=== PATIENT | male | born 1980 | race Caucasian/White ===

== ENCOUNTER → 2020-08-13 10:21 | Outpatient (CLI) | payer BC, SELFPAY ==
--- NOTE | ~2020-08-13 | US_ITS ---
EXAMINATION: US abdomen complete EXAM DATE: 08/13/2020 10:59 INDICATION: K76.9 liver disease . Elevated liver enzymes. TECHNIQUE: Multiple grayscale and Doppler images of the complete abdomen were obtained (by a technolo gist who performed the scan) and subsequently reviewed. There is no prior study for comparison. FINDINGS: The abdominal aorta is normal in caliber. Visualized portion IVC is patent. The pancreatic head a nd body are normal in appearance. The pancreatic tail is not visualized. The liver has normal echogenicity and contour. There are no focal liver lesions identified. There is no evidence of intrahepatic biliary duct dilation. Portal venous flow was seen in the hepatopedal , normal direction and has normal Doppler waveform. Common bile duct measures 5 mm, which is normal. The gallbladder wall is normal in thickness, with ex pected amount of distention. No sonographic evidence of pericholecystic fluid. There is no cholelit hiases. Technologist performing exam reports patient did not demonstrate sonographic Dougherty's sign. Please note that this sign is less reliable in patients who have received pain medication. Right kidney: There is normal contour and echogenicity. It measures 11.8 x 4.9 x 6.1 centimeters. T here is 1.5 cm cyst in the superior pole. There is no hydronephrosis. Left kidney: There is normal contour and echogenicity. It measures 11.8 x 5.1 x 6.0 centimeters. T here are no focal renal lesions identified. There is no hydronephrosis. The spleen measures 13.9 centimeters, upper limits of normal. IMPRESSION: 1. Spleen upper limits of normal in size. 2. Unremarkable liver. Reviewed, dictated and finalized at location A.
== END ==
PROVIDERS: PCP Emergency Medicine; Visit Provider Emergency Medicine
DX: K76.9 Liver disease, unspecified (principal)
CPT/HCPCS: 76700

== ENCOUNTER → 2021-03-25 09:37 | Outpatient (REF) | payer OTHER, SELFPAY | LOC: ANHLAB 09:37 | PROVIDERS: PCP Emergency Medicine; Visit Provider Nurse Practitioner | DX: D22.4 Melanocytic nevi of scalp and neck (principal) | CPT/HCPCS: 88305 ==

== ENCOUNTER 2021-11-12 09:19 | Outpatient (CLI) | payer BC, SELFPAY ==
[2021-11-15 18:52] LABS: Hepatitis C RNA, Quant PCR <15 IU/mL
== END 2021-11-12 09:20 | disposition home or self-care (01) ==
LOC: ANHLAB 09:23
PROVIDERS: PCP Emergency Medicine; Visit Provider Nurse Practitioner Family
DX: B19.20 Unspecified viral hepatitis C without hepatic coma (principal)
CPT/HCPCS: 36415; 87522

== ENCOUNTER 2021-12-14 06:40 | Emergency (ER) | payer OTHER, SELFPAY ==
[2021-12-14] VITALS (36 sets, daily range): BP systolic 112–138; BP diastolic 63–95; PULSE 79–115; RESP 8–30; TEMP 37.3; O2SAT 94–98
--- NOTE | ~2021-12-14 | XR_ITS ---
EXAMINATION: XR chest 1V portable DATE: 12/14/2021 07:27 INDICATION: Cough, sore throat, fevers and chills TECHNIQUE: frontal view of the chest was obtained. COMPARISON: None FINDINGS: The lungs are clear with no focal airspace opacities, pulmonary edema, pleural effusion or pneumothor ax. The cardiomediastinal silhouette is normal. Visualized bones and soft tissues are unremarkable. IMPRESSION: 1. No acute cardiopulmonary disease. Reviewed, dictated and finalized at location A.
--- NOTE | 2021-12-14 06:52 | ECG_ITS ---
Measurements Intervals [place] Rate: 106 P: 32 KS: 149 QRS: 69 QRSD: 91 T: 55 QT: 292 QTc: 388 Interpretive Statements SINUS TACHYCARDIA INCOMPLETE RIGHT BUNDLE BRANCH BLOCK DELAYED PRECORDIAL R/S TRANSITION BORDERLINE ECG COMPARED TO ECG 05/17/2018 16:53:34 SINUS TACHYCARDIA NOW PRESENT Electronically Signed On 12-14-2021 7:53:22 CDT by Jose Corona D.O.
[2021-12-14] MEDS: ACETAMINOPHEN 500 MG TABLET 1000 MG PO (07:17)
--- NOTE | 2021-12-14 07:23 | PC.NURSE ---
Xray at bedside.
--- NOTE | 2021-12-14 07:28 | ED.GENADULT ---
HPI - General Adult General Chief complaint: Upper Respiratory Infection Stated complaint: HOYOS, chills, muscle aches, sore throat, mild cough Time Seen by Provider: 12/14/21 06:46 History of Present Illness HPI narrative: 41-year-old male presents for evaluation of sore throat, dull headache and coughs x2 days. He took a COVID test at home which was negative but does state that family members have been sick with a flulike, febrile illness. Related Data Home Medications Medication Instructions Recorded Confirmed irbesartan 150 mg tablet 150 mg PO DAILY 10/21/20 10/21/20 lorazepam 0.5 mg tablet 0.5 mg PO BID PRN 10/21/20 10/21/20 Allergies Allergy/AdvReac Type Severity Reaction Status Date / Time No Known Drug Allergies Allergy Unknown Unknown Verified 12/14/21 06:41 Review of Systems Review of Systems: CONSTITUTIONAL: Denies fever, chills, or sweats. EYES: Denies visual changes, redness, or discharge. ENT: Denies rhinorrhea, congestion, sore throat, or otalgia. CARDIOVASCULAR: Denies chest pain, palpitations, or edema. RESPIRATORY: Denies cough or dyspnea. GASTROINTESTINAL: Denies abdominal pain, nausea, vomiting, or diarrhea. GENITOURINARY: Denies dysuria or hematuria. SKIN: Denies rash or itching. MUSCULOSKELETAL: Denies back pain, joint pain, or myalgia. NEUROLOGIC: Denies headache, numbness, or weakness. PSYCHIATRIC: Denies anxiety or depression. [facility] Past Medical History Medical History Crohn's colitis IBS (irritable bowel syndrome) Social History Social History Smoking status: Former smoker Alcohol intake: never Substance use: never Exam Narrative: GENERAL: Well-appearing, well-nourished, and in no acute distress. HEAD: Normocephalic, atraumatic. EYES: PERRLA and EOMI. ENT: Nares clear, no rhinorrhea or epistaxis. Mucous membranes moist. NECK: Supple. CHEST: Clear to auscultation. No respiratory distress. HEART: Regular rate and rhythm. No murmur heard. Normal peripheral pulses. ABDOMEN: Soft, nontender, nondistended, normal active bowel sounds. EXTREMITIES: Normal range of motion. No edema. SKIN: Warm, dry, no rash. NEURO: No focal deficits. Alert and oriented x3. PSYCH: Normal mood and affect. Course Vital Signs Vital signs: Vital Signs Temperature 99.1 F 12/14/21 06:41 Pulse Rate 110 H 12/14/21 06:41 Respiratory Rate 16 12/14/21 06:41 Blood Pressure 137/63 12/14/21 06:41 Pulse Oximetry 98 12/14/21 06:41 Oxygen Delivery Room Air 12/14/21 06:41 Temperature 99.1 F 12/14/21 06:41 Pulse Rate 88 12/14/21 13:02 Respiratory Rate 12 12/14/21 13:02 Blood Pressure 122/74 12/14/21 13:02 Pulse Oximetry 98 12/14/21 13:02 Oxygen Delivery Room Air 12/14/21 07:21 Medical Decision Making MDM Narrative Medical decision making narrative: COVID test and chest x-ray ordered upon arrival. Patient is well-appearing. No increased work of breathing, hypoxia, dyspnea. Labs are reassuring, mild leukocytosis noted patient is afebrile, well-appearing. And agrees to follow-up with primary care provider and return precautions given. Vital Signs Vital Signs: Vital Signs Temperature 99.1 F 12/14/21 06:41 Pulse Rate 110 H 12/14/21 06:41 Respiratory Rate 16 12/14/21 06:41 Blood Pressure 137/63 12/14/21 06:41 Pulse Oximetry 98 12/14/21 06:41 Oxygen Delivery Room Air 12/14/21 06:41 Temperature 99.1 F 12/14/21 06:41 Pulse Rate 88 12/14/21 13:02 Respiratory Rate 12 12/14/21 13:02 Blood Pressure 122/74 12/14/21 13:02 Pulse Oximetry 98 12/14/21 13:02 Oxygen Delivery Room Air 12/14/21 07:21 Lab Data Result diagrams: 12/14/21 07:39 12/14/21 07:39 Labs: Lab Results 12/14/21 12/14/21 12/14/21 Range/Units 07:02 07:39 07:39 WBC 15.5 H (4.5-10.0) K/mm3 RBC 5.05
[2021-12-14 07:44] LABS: Basophils Absolute Auto 0.1 K/mm3 (0.0-0.1); Basophils Percent Auto 0.4 % (0.2-1.2); Eosinophils Absolute Auto 0.1 K/mm3 (0-0.3); Eosinophils Percent Auto 0.4 % (0-4.4); Hematocrit 45.1 % (42.0-52.0); Hemoglobin 15.4 g/dL (14.0-18.0); Immature Granulocyte Absolute 0.07 K/mm3 (0.00-0.031); Immature Granulocyte Percent A 0.5 % (0-0.5); Lymphocytes Percent Auto 9.7 % (18.3-44.2); Mean Corpuscular HGB Conc 34.1 g/dl (32-36); Mean Corpuscular Hemoglobin 30.5 pg (26-34); Mean Corpuscular Volume 89.3 fl (80-100); Mean Platelet Volume 8.9 fl (7.4-10.4); Monocytes Absolute Auto 1.5 K/mm3 (0.1-0.6); Monocytes Percent Auto 9.7 % (2.6-8.5); Neutrophils Absolute Auto 12.3 K/mm3 (1.3-6.7); Neutrophils Percent Auto 79.3 % (45.5-73.1); Platelet Count Result 149 k/mm3 (150-375); Red Blood Count 5.05 M/mm3 (4.6-6.20); Red Cell Distribution Width 12.2 % (11.5-14.5); White Blood Count 15.5 K/mm3 (4.5-10.0)
[2021-12-14 07:54] LABS: Anion Gap 14 mmol/L (8-16); Blood Urea Nitrogen 18 mg/dL (9-20); Calcium 8.9 mg/dL (8.4-10.2); Carbon Dioxide 29 mmol/L (22-30); Chloride 97 mmol/L (98-107); Estimated CRCL calculation 114 ml/min; Estimated Glomerular Filt Rate > 60; Glucose 148 mg/dL (65-110); Potassium 4.2 mmol/L (3.4-5.0); Sodium 140 mmol/L (137-145)
[2021-12-14 08:05] LABS: Troponin I < 0.012 ng/mL (0.000-0.034)
[2021-12-14] MEDS: LACTATED RINGERS 1,000 ML 999 ML IV CONT (08:08)
[2021-12-14 09:13] LABS: SARS-CoV-2 RNA PCR Negative
[2021-12-14 10:15] LABS: Appearance Urine Clear (Clear); Bilirubin Urine Negative (Negative); Blood Urine 2+ (Negative); Color Urine Yellow (Yellow); Glucose Urine UA Negative (Negative); Ketones Urine Negative (Negative); Leukocyte Esterase Ur Negative LEU/UL (Negative); Nitrate Urine Negative (Negative); Protein Urine 2+ mg/dL (Negative); Specific Grav Ur 1.015 (1.001-1.035); Urobilinogen Urine 0.2 mg/dL (<2.0)
[2021-12-14 10:18] LABS: Mucus Urine Rare /lpf; WBC Urine 0-3 /hpf
[2021-12-14 10:25] LABS: Add Urine Microscopic? YES
[2021-12-14] MEDS: KETOROLAC 15 MG/ML VIAL (*BKC) IV PUSH (13:17)
== END 2021-12-14 13:45 | disposition home or self-care (01) ==
PROVIDERS: Emergency Provider Emergency Medicine; PCP Emergency Medicine
DX: J06.9 Acute upper respiratory infection, unspecified (principal); K50.90 Crohn's disease, unspecified, without complications; Z87.891 Personal history of nicotine dependence; Z20.822 Contact with and (suspected) exposure to COVID-19
CPT/HCPCS: 36415; 71045; 80048; 81001; 84484; 85025; 87081; 87880; 93005; 96361; 96374; 99284; A9270; C9803; J1885; J7120; U0003; U0005

== ENCOUNTER 2023-07-09 15:16 | Emergency (ER) | payer BC, SELFPAY ==
[2023-07-09] VITALS (7 sets, daily range): BP systolic 145–176; BP diastolic 79–98; PULSE 67–91; RESP 15–18; TEMP 37; O2SAT 94–99
--- NOTE | ~2023-07-09 | XR_ITS ---
EXAM: XR sacroiliac joints min 3V DATE: 07/09/2023 18:38 HISTORY: R SI joint pain, no trauma . COMPARISON: None available. FINDINGS: Normal mineralization. No fracture or dislocation. No lytic or blastic lesion. Mild erosiv e change and iliac sclerosis at the right SI joint. Remaining spaces are maintained. No erosion or pe riosteal change. Soft tissues within normal limits. IMPRESSION: Right sacroiliitis. Reviewed, dictated and finalized at location K. IMPRESSION: Right sacroiliitis.
--- NOTE | 2023-07-09 18:21 | ED.BACK ---
HPI - Back Pain/Injury General Chief Complaint: Back Pain/Injury Stated Complaint: back pain Time Seen by Provider: 07/09/23 17:32 History of Present Illness HPI Narrative: 43-year-old male with history of chronic back pain presents to the emergency department for acute on chronic back pain. Patient states he woke up 2 days ago with pain to his right lower back. States he thought he slept on it wrong the night before since he went to bed the night before without any pain. States his pain is progressively worsened which prompted to come to the ER today. He reports his pain is in his right lower back and radiates down into the superior aspect of his anterior lateral thigh. States the pain is worse with movement and is improved when he sits still. Denies saddle anesthesia, bowel or bladder incontinence, bladder retention, dysuria or hematuria, fever, use immunosuppressants, IV drug use. States he use to have steroid injections in his back, his last being 6 years ago. Denies recent surgeries or procedures to the back. He does have a hx of Crohn's disease within his chart, however is not currently undergoing treatment and denies dx of this in the past. Related Data Home Medications Medication Instructions Recorded Confirmed irbesartan 150 mg tablet 150 mg PO DAILY 10/21/20 10/21/20 lorazepam 0.5 mg tablet 0.5 mg PO BID PRN 10/21/20 10/21/20 Allergies Allergy/AdvReac Type Severity Reaction Status Date / Time No Known Drug Allergies Allergy Unknown Unknown Verified 07/09/23 17:34 Review of Systems Review of Systems: CONSTITUTIONAL: Denies fever, chills, or sweats. EYES: Denies visual changes, redness, or discharge. ENT: Denies rhinorrhea, congestion, sore throat, or otalgia. CARDIOVASCULAR: Denies chest pain, palpitations, or edema. RESPIRATORY: Denies cough or dyspnea. GASTROINTESTINAL: Denies abdominal pain, nausea, vomiting, or diarrhea. GENITOURINARY: Denies dysuria or hematuria. SKIN: Denies rash or itching. MUSCULOSKELETAL: See HPI NEUROLOGIC: Denies headache, numbness, or weakness. PSYCHIATRIC: Denies anxiety or depression. [facility] Past Medical History Medical History Crohn's colitis IBS (irritable bowel syndrome) Social History Social History Smoking status: Former smoker Alcohol intake: never Substance use: never Exam Narrative: GENERAL: Well-appearing, well-nourished, and in no acute distress. HEAD: Normocephalic, atraumatic. EYES: PERRLA and EOMI. ENT: Nares clear, no rhinorrhea or epistaxis. Mucous membranes moist. NECK: Supple. BACK: No midline thoracolumbar spinous tenderness, step-offs or deformities. Point tenderness to the right SI joints without overlying skin changes. Diffuse tenderness throughout the flanks without overlying skin changes. CHEST: Clear to auscultation. No respiratory distress. HEART: Regular rate and rhythm. No murmur heard. Normal peripheral pulses. ABDOMEN: Soft, nontender, nondistended, normal active bowel sounds. EXTREMITIES: Normal range of motion. No edema. No saddle anesthesia. Strength 5/5 in BLE. Sensation intact throughout. DP pulses 2+. SKIN: Warm, dry, no rash. NEURO: No focal deficits. Alert and oriented x3 Course Vital Signs Vital signs: Vital Signs Temperature 98.6 F 07/09/23 15:19 Pulse Rate 91 07/09/23 15:19 Respiratory Rate 18 07/09/23 15:19 Blood Pressure 176/90 H 07/09/23 15:19 Pulse Oximetry 98 07/09/23 15:19 Temperature 98.6 F 07/09/23 15:19 Pulse Rate 70 07/09/23 18:48 Respiratory Rate 15 07/09/23 18:48 Blood Pressure 155/96 H 07/09/23 18:48 Pulse Oximetry 99 07/09/23 18:48 MDM - Back Pain/Injury MDM Narrative Medical decision making narrative: 43-year-old male presents to the emergency department for back pain x2 days. No injury or trauma. No red flag back pain signs.
[2023-07-09] MEDS: CYCLOBENZAPRINE HCL 10 MG TABLET PO (18:43)
[2023-07-09] MEDS: dexAMETHasone SOD PHOS INJ 10 MG/ML 1 ML VIAL IM (18:45)
[2023-07-09] MEDS: LIDOCAINE 5% PATCH 1 PATCH TRANSDERM (18:46)
--- NOTE | 2023-07-09 19:05 | PC.NURSE ---
Report given to Humble NORMAN, all questions answered
[2023-07-09 19:12] LABS: Appearance Urine Clear (Clear); Bacteria Urine None Seen /hpf; Bilirubin Urine Negative (Negative); Blood Urine 3+ (Negative); Color Urine Yellow (Yellow); Glucose Urine UA Negative (Negative); Ketones Urine Negative (Negative); Leukocyte Esterase Ur Negative LEU/UL (Negative); Nitrate Urine Negative (Negative); Non Pathogenic Casts 0-2; Protein Urine Negative (Negative); RBC Urine 21-50 /hpf (0-2); Specific Grav Ur 1.027 (1.001-1.035); Squamous Epithelial Cell Urine None Seen /hpf (Few); Urobilinogen Urine 0.2 mg/dL (<2.0); WBC Urine 0-5 /hpf (0-3); pH Urine 5.5 (5.0-9.0)
[2023-07-09 19:13] LABS: Add Urine Microscopic? YES
[2023-07-09] MEDS: GABAPENTIN 100 MG CAPSULE PO (19:41)
[2023-07-09] MEDS: KETOROLAC 30 MG/ML VIAL (*BKC) IM (19:42)
[2023-07-09] MEDS: HYDROmorphone HCL INJ (*CRX) 1 MG/ML SYR IM (20:33)
== END 2023-07-09 20:49 | disposition home or self-care (01) ==
PROVIDERS: Emergency Provider Physician Assistant; PCP Emergency Medicine
DX: M46.1 Sacroiliitis, not elsewhere classified (principal); R31.9 Hematuria, unspecified; K58.9 Irritable bowel syndrome, unspecified; Z87.891 Personal history of nicotine dependence
CPT/HCPCS: 72202; 81001; 96372; 99284; A9270; J1100; J1170; J1885

== ENCOUNTER 2023-07-11 16:12 | Outpatient (CLI) | payer BC, SELFPAY ==
--- NOTE | ~2023-07-11 | CT_ITS ---
EXAMINATION: CT abdomen pelvis wo con DATE: 07/11/2023 16:32 INDICATION: Right flank pain. Hematuria. TECHNIQUE: Computed tomography (CT) of the abdomen and pelvis was performed without intravenous contr ast. The dose-length product was 405.57 mGy-cm. Automated exposure control and iterative reconstructi on technique were employed. COMPARISON: None. FINDINGS: There is lingular atelectasis/scarring. Heart size normal. No significant pleural or perica rdial effusion. There is mild retroperitoneal lymphadenopathy, likely reactive. Nonobstructive bowel pattern. The sravan er, spleen, pancreas, adrenal glands and kidneys are unremarkable. Gallbladder is present. Normal jamel endix. No abnormal pelvic masses or fluid collections. No free air or free fluid. No acute osseous ab normality. IMPRESSION: 1. No acute abdominal abnormality. 2: Mild retroperitoneal lymphadenopathy, nonspecific. Reviewed, dictated and finalized at location A.
== END 2023-07-11 16:13 | disposition home or self-care (01) ==
PROVIDERS: PCP Emergency Medicine; Visit Provider Emergency Medicine
DX: R59.0 Localized enlarged lymph nodes (principal)
CPT/HCPCS: 74176

== ENCOUNTER 2023-09-27 14:19 | Outpatient (CLI) | payer BC, SELFPAY ==
--- NOTE | ~2023-09-27 | XR_ITS ---
EXAM: XR hip BI 2V w AP pelvis DATE: 09/27/2023 14:38 HISTORY: lumbago with sciatica . COMPARISON: X-ray SI joints 07/09/2023. FINDINGS: Normal mineralization. No fracture or dislocation. No lytic or blastic lesion. Mild degene rative changes in the right SI joint (better demonstrated in the prior study) and bilateral hips. Mil d scattered pelvic enthesopathy. No erosion or periosteal change. Soft tissues within normal limits. IMPRESSION: Right sacroiliitis and bilateral hip osteoarthritis. Reviewed, dictated and finalized at location K.
--- NOTE | ~2023-09-27 | XR_ITS ---
3 VIEWS LUMBAR SPINE Ordering provider: Julius Haq MD History: . Lumbago with sciatica . Comparison: September 29, 2017 FINDINGS: VERTEBRAL BODIES: No visible fracture or subluxation. Degenerative changes of the spine. DISK SPACES: Narrowing of the disc L3-L4, L4-L5 and L5-S1. Facet joint disease at the level of L4-L5 and L5-S1. SOFT TISSUES: Normal. Right sacroiliitis. IMPRESSION: No acute osseous abnormality lumbar spine. Multilevel degenerative disc disease. Reviewed, dictated and finalized at location A.
== END 2023-09-27 14:20 ==
PROVIDERS: PCP Emergency Medicine; Visit Provider Emergency Medicine
DX: M16.11 Unilateral primary osteoarthritis, right hip (principal); M53.3 Sacrococcygeal disorders, not elsewhere classified; M51.36 Other intervertebral disc degeneration, lumbar region
CPT/HCPCS: 72100; 73521

== ENCOUNTER 2023-11-13 02:34 | Day surgery (SDC) | payer BC, SELFPAY ==
[2023-10-30 15:02] VITALS: BMI 29.2
[2023-11-13 09:32] VITALS: BP 117/73; PULSE 82; RESP 18; TEMP 36.3; O2SAT 100
[2023-11-13] MEDS: LACTATED RINGERS 1,000 ML 150 ML IV CONT (09:39)
--- NOTE | 2023-11-13 10:49 | P.PNAN_ITS ---
Anes - Initial Pre Proc Eval Procedure: Operation Date: 11/13/23 10:30 Proposed Procedures p Screening Colonoscopy - Chandu Rodgers MD Date/Time: 11/13/23 10:49 Surgeon: Chandu Rodgers MD Pre Op Diagnosis: neoplasm screening Patient Data Age: 43 Gender: M Height: 1.83 m Weight: 98.9 kg Last Vital Signs Temp 97.4 F L 11/13/23 09:32 Pulse 82 11/13/23 09:32 Resp 18 11/13/23 09:32 BP 117/73 11/13/23 09:32 Pulse Ox 100 11/13/23 09:32 O2 Del Method Room Air 11/13/23 09:32 Allergies Allergy/AdvReac Type Severity Reaction Status Date / Time No Known Drug Allergies Allergy Unknown Unknown Verified 11/13/23 09:31 Home Medications Medication Instructions Recorded Confirmed Type irbesartan 150 mg tablet 150 mg PO DAILY 10/21/20 11/13/23 History [place] 3 Fish Oil 1 caplet PO DAILY 10/30/23 10/30/23 History Patient hx anesthesia problems: none Family hx anesthesia problems: none Results Review: All pre-operative results and documents have been reviewed as part of the pre- operative evaluation. [facility] Past Medical History Medical History Crohn's colitis IBS (irritable bowel syndrome) Social History Social History Smoking packs per day: 1 Smoking cigarettes per day: 20.0 Years smoked: 20 Smoking pack-years: 20.00 Smoking status: Former smoker Tobacco type: cigarettes Alcohol intake: never Substance use: never Substance use type: does not use Living arrangements: with family Spiritual care concerns: No Anes - Eval Final PreProcedure Day of Procedure 11/13/23 10:49 Patient weight: normal Heart: regular rate and rhythm Lungs: clear to auscultation Airway: Mallampati scale class II Neurological: alert and oriented Last oral intake: >/= 8 hours ASA classification: II Emergent: no Anesthetic plan: proceed Anesthesia type and monitoring: general GIVS and standard monitoring Results Review: All pre-operative results and documents have been reviewed as part of the pre- operative evaluation. Informed Consent: The patient's anesthetic plan and its attendant risks and benefits were discussed with the patient/family/POA. Questions were solicited and answers provided to the satisfaction of the patient/family/POA.
--- NOTE | 2023-11-13 10:50 | P.HP_ITS ---
History of Present Illness History of Present Illness Consent: Risks, benefits, and alternatives have been discussed and questions answered. Patient agrees to proceed with procedure. Chief complaint: neoplasm screening Narrative: Maurilio Yusuf is a 43 year old male here for first screening colonoscopy Review of Systems Review of Systems: All systems reviewed & are unremarkable except as noted in HPI and below PMFSH Past Medical History Medical History (Updated 11/13/23 @ 10:51 by Chandu Rodgers MD) Colon cancer screening Crohn's colitis IBS (irritable bowel syndrome) Social History Social History Smoking packs per day: 1 Smoking cigarettes per day: 20.0 Years smoked: 20 Smoking pack-years: 20.00 Smoking status: Former smoker Tobacco type: cigarettes Alcohol intake: never Substance use: never Substance use type: does not use Living arrangements: with family Spiritual care concerns: No Meds Home Medications and Allergies Home Medications Medication Instructions Recorded Confirmed Type irbesartan 150 mg tablet 150 mg PO DAILY 10/21/20 11/13/23 History [place] 3 Fish Oil 1 caplet PO DAILY 10/30/23 10/30/23 History Allergies Allergy/AdvReac Type Severity Reaction Status Date / Time No Known Drug Allergies Allergy Unknown Unknown Verified 11/13/23 09:31 Vital Signs Vital Signs - 24 hr 11/13/23 09:32 Temperature 97.4 F L Pulse Rate 82 Respiratory Rate 18 Blood Pressure 117/73 Pulse Oximetry 100 Oxygen Delivery Room Air Exam Const: General: comfortable and no acute distress HENMT: Face/Nose/Sinus: Normal nares present Eyes: General: appearance normal, both eyes and all related structures Neck: Neck: no JVD Resp: Auscultation: clear to auscultation bilaterally Cardio: Rate: regular rate Rhythm: regular rhythm GI: Inspection: non-distended GI Palp: Yes Soft to palpation Skin: General skin exam: normal color Neuro: General: gait normal Speech: normal speech Extrem: General: normal to inspection Psych: Mental Status: mental status grossly normal Assessment and Plan Assessment and plan (1) Colon cancer screening: Code(s): Z12.11 - Encounter for screening for malignant neoplasm of colon Status: Acute Assessment and Plan: colonoscopy
[2023-11-13 11:08] VITALS: BP 118/83; PULSE 84; RESP 20; O2SAT 97
[2023-11-13 11:18] VITALS: BP 113/68; PULSE 76; RESP 20; O2SAT 98
[2023-11-13 11:28] VITALS: BP 120/73; PULSE 80; RESP 20; O2SAT 98
== END 2023-11-13 11:39 | disposition home or self-care (01) ==
PROVIDERS: PCP Emergency Medicine; Visit Provider Internal Medicine Gastroenterology
PROC: 0DJD8ZZ Inspection of Lower Intestinal Tract, Via Natural or Artificial Opening Endoscopic (ICD-10-PCS; CPT 45378; principal; 2023-11-13 10:30)
DX: Z12.11 Encounter for screening for malignant neoplasm of colon (principal); K64.8 Other hemorrhoids; K58.9 Irritable bowel syndrome, unspecified; Z87.891 Personal history of nicotine dependence
CPT/HCPCS: 45378; J2704; J7120

== ENCOUNTER 2024-02-11 11:23 | Emergency (ER) | payer BC, SELFPAY ==
--- NOTE | ~2024-02-11 | XR_ITS ---
Right Hand Technique: PA, oblique, and lateral views were obtained. Clinical History: Injury Findings: No acute fracture or dislocation is seen. Osseous alignment is anatomic. Joint spaces are p reserved. Soft tissues are unremarkable. Impression: Unremarkable right hand. Reviewed, dictated and finalized at location M. ATOLOGICAL SURGEON Impression: Unremarkable right hand.
[2024-02-11 11:24] VITALS: BP 139/86; PULSE 88; RESP 16; TEMP 36.3; O2SAT 99
--- NOTE | 2024-02-11 12:17 | ED.GENADULT ---
HPI - General Adult General Chief complaint: Wound/Laceration Stated complaint: right 3rd and 4th finger laceration Time Seen by Provider: 02/11/24 11:57 History of Present Illness HPI narrative: 43-year-old male presents to the emergency department for evaluation for a right hand injury. Patient was using a drill when a wire broke free and lacerated the 3rd and 4th fingers of his right hand. Laceration to the 4th finger is an avulsion and will need no suture repair the laceration to the 3rd finger as at the PIP and will need repair, neurovascularly intact with no weakness and bleeding is controlled. Patient's tetanus is not up-to-date. Related Data Home Medications Medication Instructions Recorded Confirmed irbesartan 150 mg tablet 150 mg PO DAILY 10/21/20 11/13/23 [place] 3 Fish Oil 1 caplet PO DAILY 10/30/23 10/30/23 Allergies Allergy/AdvReac Type Severity Reaction Status Date / Time No Known Drug Allergies Allergy Unknown Unknown Verified 02/11/24 11:23 [facility] Past Medical History Medical History (Updated 02/11/24 @ 13:43 by Azar Avila MD) Colon cancer screening Crohn's colitis IBS (irritable bowel syndrome) Social History Social History Smoking packs per day: 1 Smoking cigarettes per day: 20.0 Years smoked: 20 Smoking pack-years: 20.00 Smoking status: Former smoker Tobacco type: cigarettes Alcohol intake: never Substance use: never Substance use type: does not use Living arrangements: with family Spiritual care concerns: No Course Vital Signs Vital signs: Vital Signs Temperature 97.4 F L 02/11/24 11:24 Pulse Rate 88 02/11/24 11:24 Respiratory Rate 16 02/11/24 11:24 Blood Pressure 139/86 02/11/24 11:24 Pulse Oximetry 99 02/11/24 11:24 Oxygen Delivery Room Air 02/11/24 11:24 Temperature 97.4 F L 02/11/24 11:24 Pulse Rate 88 02/11/24 11:24 Respiratory Rate 16 02/11/24 11:24 Blood Pressure 139/86 02/11/24 11:24 Pulse Oximetry 99 02/11/24 11:24 Oxygen Delivery Room Air 02/11/24 11:24 Procedures Laceration Laceration 1: Time: 13:41 Site: upper extremity Side (If applicable): right Size (cm): 2 Description: flap and irregular Depth: simple, single layer Local Anesthetic: lidocaine 1% Amount of anesthesia used (mL): 3 (Digital block) Pre-repair: wound explored, irrigated and irrigated extensively ====== Skin Level ====== Skin layer closed with: prolene Size (cm): 4-0 Number of sutures: 4 Technique: simple, interrupted ====== Subcutaneous Layer ====== ====== Muscle Layer ====== ====== Tendon Layer ====== Medical Decision Making MDM Narrative Medical decision making narrative: 43-year-old male presents to the emergency department for evaluation for a laceration to his right middle. X-ray was negative for acute fracture dislocation. Laceration was repaired as described. Patient's tetanus was updated. Vital Signs Vital Signs: Vital Signs Temperature 97.4 F L 02/11/24 11:24 Pulse Rate 88 02/11/24 11:24 Respiratory Rate 16 02/11/24 11:24 Blood Pressure 139/86 02/11/24 11:24 Pulse Oximetry 99 02/11/24 11:24 Oxygen Delivery Room Air 02/11/24 11:24 Temperature 97.4 F L 02/11/24 11:24 Pulse Rate 88 02/11/24 11:24 Respiratory Rate 16 02/11/24 11:24 Blood Pressure 139/86 02/11/24 11:24 Pulse Oximetry 99 02/11/24 11:24 Oxygen Delivery Room Air 02/11/24 11:24 Imaging Data Radiologist's impression: Impressions Hand X-Ray 02/11/24 12:42 Impression: Unremarkable right hand. Discharge Plan Discharge Clinical Impression: Finger laceration, Avulsion of skin of finger Patient Disposition: Home, Self-Care Condition: Stable Instructions: Antibiotic Form, Laceration (ED), Skin Avulsion (ED) Additional Instructions: Sutures need to be removed in 7-10 days. Wound care as directed. Have close follow-up with your primary care physician. Prescriptions: No Action irbesartan 150 mg tablet 150 mg PO DAILY [place] 3 Fish Oil 1 caplet PO DAILY Follow-up/Referrals: Julius Haq MD [Primary Care Provider] -
[2024-02-11] MEDS: HYDROcodone/acetaminophen (*CRX) 5-325 MG TABLET 1 TAB PO (12:32)
[2024-02-11] MEDS: TETANUS,DIPHTHERIA,AC PERTUSSIS ADULT (0.5 ML) BOOSTRIX IM (12:32)
--- NOTE | 2024-02-11 13:45 | PC.NURSE ---
metal finger placed to right hand middle finger for protection per verbal order by EDP.
== END 2024-02-11 13:52 | disposition home or self-care (01) ==
PROVIDERS: Emergency Provider Emergency Medicine; PCP Emergency Medicine
DX: S61.212A Laceration without foreign body of right middle finger without damage to nail, initial encounter (principal); S61.214A Laceration without foreign body of right ring finger without damage to nail, initial encounter; Z23 Encounter for immunization; K50.90 Crohn's disease, unspecified, without complications; Z87.891 Personal history of nicotine dependence; W20.8XXA Other cause of strike by thrown, projected or falling object, initial encounter
CPT/HCPCS: 12001; 73130; 90471; 90715; 99283; A9270

== ENCOUNTER 2024-03-30 11:13 | Emergency (ER) | payer BC, SELFPAY ==
[2024-03-30 11:21] VITALS: BP 132/84; PULSE 99; RESP 16; TEMP 36.6; O2SAT 99
--- NOTE | 2024-03-30 11:53 | ED_ITS ---
HPI - URI/Sore Throat General Chief Complaint: Upper Respiratory Infection Stated Complaint: Sore Throat Time Seen by Provider: 03/30/24 11:53 Source: patient, RN notes reviewed and old records reviewed Mode of arrival: ambulatory Limitations: no limitations History of Present Illness HPI Narrative: Patient presents with complaints of runny nose, slight cough, sore throat. He reports symptoms have been present for a few days. He is most concerned about strep, reports that a couple of weeks ago his daughter was treated for this. He denies any difficulty swallowing. No drooling or stridor noted. Patient has been taking multiple [id number] medications with moderate relief. He voices no other concerns or complaints at this time Related Data Home Medications ?Medication ?Instructions ?Recorded ?Confirmed ?Last Taken ?Type irbesartan 150 mg tablet 150 mg PO DAILY 10/21/20 03/30/24 11/13/23 07:00 History Allergies Allergy/AdvReac Type Severity Reaction Status Date / Time No Known Drug Allergies Allergy Unknown Unknown Verified 03/30/24 11:16 Review of Systems Review of Systems: All systems reviewed & are unremarkable except as noted in HPI and below Constitutional: Constitutional: Reports no additional constitutional complaints ENT: Reports system reviewed and no additional complaints, except as documented, Reports nasal congestion and Reports sore throat Cardiovascular: Cardiovascular: Reports no additional cardiovascular complaints Respiratory: Respiratory: Reports no additional respiratory complaints and Reports cough Gastrointestinal: Gastrointestinal: Reports no additional gastrointestinal complaints [facility] Past Medical History Medical History (Updated 03/30/24 @ 12:25 by Anne Quesada APRN) Colon cancer screening Crohn's colitis IBS (irritable bowel syndrome) Social History Social History Smoking packs per day: 1 Smoking cigarettes per day: 20.0 Years smoked: 20 Smoking pack-years: 20.00 Smoking status: Former smoker Tobacco type: cigarettes Alcohol intake: never Substance use: never Substance use type: does not use Living arrangements: with family Spiritual care concerns: No Comments At the time of my signature, I reviewed and agree with the nursing past medical, surgical, social, and family history. There is no relevant family history pertinent to the patient complaint. Exam Const: General: cooperative, no acute distress, alert and awake Orientation/consciousness: oriented to person, oriented to place and oriented to time HENMT: Head: normal to inspection Resp: Effort & Inspection: normal respiratory effort and able to speak in complete sentences Auscultation: clear to auscultation bilaterally, no crackles, no rales, no rhonchi and no wheezes Cardio: Palpation: normal PMI Rate: regular rate Rhythm: regular rhythm Heart sounds: S1 normal heart sound present and S2 normal heart sound present Neuro: General: oriented to person, oriented to place and oriented to time Cranial nerves: Yes CN's II-XII intact bilaterally Psych: Appearance: grossly normal Thought process: Normal thought process present Insight: Good insight present (Psych) Judgement: Good judgement present (Psych) Course Course Level of Care: Express Care Visit Vital Signs Vital signs: Vital Signs Temperature 102.1 F H 03/30/24 11:21 Pulse Rate 99 03/30/24 11:21 Respiratory Rate 16 03/30/24 11:21 Blood Pressure 132/84 03/30/24 11:21 Pulse Oximetry 99 03/30/24 11:21 Oxygen Delivery Room Air 03/30/24 11:21 Temperature 102.1 F H 03/30/24 11:21 Pulse Rate 99 03/30/24 11:21 Respiratory Rate 16 03/30/24 11:21 Blood Pressure 132/84 03/30/24 11:21 Pulse Oximetry 99 03/30/24 11:21 Oxygen Delivery Room Air 03/30/24 11:21 Reviewed MDM - URI/Sore Throat MDM Narrative Medical decision making narrative: Negative COVID, negative flu, negative strep. Culture pending. Reassuring physical exam. Symptoms likely viral in origin. Treat symptomatically. Discharge instructions reviewed with patient, as well as provided in writing per nursing staff. The instructions also include specific and strict return/GO TO THE ER as well as f/u information. All questions have been answered, and the patient deny any further questions with discharge and discharge plan. Some parts of this dictation were generated by voice recognition software and may contain typographical and/or grammatical inaccuracies. Differential Diagnosis Differential diagnosis: Likely upper respiratory infection, otitis media, sinusitis, bronchitis, influenza and pharyngitis Medical Records Attestation: I reviewed the patient's medical records. Lab Data Attestation: I reviewed the patient's lab results. Discharge Plan Discharge Clinical Impression: Upper respiratory infection Qualifiers: URI type: unspecified viral URI Qualified Code(s): J06.9 - Acute upper respiratory infection, unspecified Patient Disposition: Home, Self-Care Condition: Stable Instructions: Antibiotic Form, Cold Symptoms (ED) Additional Instructions: Use [id number] medications to treat her symptoms. Follow package instructions. Follow-up with primary care provider. Emergency department for new or worse symptoms. Patient Language: Vietnamese Prescriptions: No Action meloxicam 15 mg tablet 15 mg PO DAILY irbesartan 150 mg tablet 150 mg PO DAILY [place] 3 Fish Oil 1 caplet PO DAILY Follow-up/Referrals: Julius Haq MD [Primary Care Provider] - 2 Weeks Stand Alone Forms: Work/School Release IP Time of Disposition: 12:25
[2024-03-30 12:36] LABS: EDCOVIDSCREEN Negative (Negative)
[2024-03-30 12:36] LABS: EDINFLUASCREEN Negative (Negative); EDINFLUBSCREEN Negative (Negative)
[2024-03-30 15:17] LABS: EDSTREPNEGPOS1 Negative (Negative)
== END 2024-03-30 12:28 | disposition home or self-care (01) ==
PROVIDERS: Emergency Provider Nurse Practitioner Family; PCP Emergency Medicine
DX: J06.9 Acute upper respiratory infection, unspecified (principal); Z20.822 Contact with and (suspected) exposure to COVID-19; Z87.891 Personal history of nicotine dependence; K50.90 Crohn's disease, unspecified, without complications
CPT/HCPCS: 87081; 87426; 87804; 87880; 99213; G0463